=== PATIENT | female | born 1965 | race Caucasian/White ===

== ENCOUNTER 2017-02-26 18:57 | Emergency (ER) | payer BC, OTHER ==
[2017-02-26 19:05] VITALS: BP 137/58; PULSE 91; RESP 18; TEMP 98.3; O2SAT 97
[2017-02-26] MEDS ORDERED: Naproxen 500 MG TAB PO ONE ×2 (19:09→19:48)
--- NOTE | 2017-02-26 19:13 | ED PDOC ---
Lower Extremity Pain/Injury Time Seen by Provider: 02/26/17 19:05 Chief Complaint (Nursing): Lower Extremity Problem/Injury Chief Complaint (Provider): Lower Extremity Problem/Injury History Per: Patient History/Exam Limitations: no limitations Onset/Duration Of Symptoms: Days (x today) Current Symptoms Are (Timing): Still Present Additional Complaint(s): Ana is a 51 year old female who presents to the emergency department complaining of right leg pain s/p slipped and fell earlier today while at work. Patient states she slipped down ramp and "right leg went behind her" and fell down split-like position. Denies any numbness, tingling, head injury or other injuries. PMD: [place]oundry - Knee Description Of Injury: Fell Past Medical History Reviewed: Historical Data, Nursing Documentation, Vital Signs Vital Signs: Last Vital Signs Temp 98.3 F 02/26/17 19:01 Pulse 91 H 02/26/17 19:01 Resp 18 02/26/17 19:01 BP 137/58 L 02/26/17 19:01 Pulse Ox 97 02/26/17 19:01 - Medical History PMH: Asthma - Surgical History Surgical History: No Surg Hx - Family History Family History: States: Unknown Family Hx - Home Medications Home Medications: Ambulatory Orders Medication Instructions Recorded Albuterol 0.042% [Albuterol 0.042% 1.25 mg INH Q4H 10/21/13 Inhal Zaina (1.25mg/3ml) UD] Albuterol Sulfate [Proventil 3 ml] 2 inhaler INH Q3H PRN 10/21/13 Albuterol Sulfate [Proventil 3 ml] 3 ml IH Q4 #1 zaina 10/21/13 Naproxen [Naprosyn] 500 mg PO BID PRN #30 tab 02/26/17 - Allergies Allergies/Adverse Reactions: Allergies Allergy/AdvReac Type Severity Reaction Status Date / Time No Known Allergies Allergy Verified 10/21/13 17:21 Review of Systems ROS Statement: Except As Marked, All Systems Reviewed And Found Negative Musculoskeletal: Positive for: Leg Pain (Right) Neurological: Negative for: Numbness, Other (Tingling) Physical Exam - Reviewed Nursing Documentation Reviewed: Yes Vital Signs Reviewed: Yes - Physical Exam Extremity: Positive for: Tenderness (Mild tenderness to entire right knee). Negative for: Calf Tenderness, Capillary Refill, Swelling, Other (No Hip tenderness) - Laboratory Results Urine POC: Negative - ECG O2 Sat by Pulse Oximetry: 97 (RA) Pulse Ox Interpretation: Normal - Radiology X-Ray: Interpreted by Me (Knee x-ray) X-Ray Interpretation: Other (DJD; no fx) - Progress ED Course And Treament: Knee immobilized in immobilizer applied by [facility] [place] tech. Crutches and crutch walking instructions provided. Medical Decision Making Medical Decision Making: Time: 19:09 Plan: - Right Knee X-Ray - Naproxen 500 mg PO Upon provider evaluation patient is medically stable, and requires no further treatment in the ED at this time. Patient will be discharged with Rx for Naprosyn. Counseling was provided and all questions were answered regarding diagnosis and should follow up with Dr. Butch Stone next week for further evaluation. There is agreement to discharge plan. Return if symptoms persist or worsen. Scribe Attestation: Documented by Kervin Root, acting as a scribe for NIC Hannah. Provider Scribe Attestation: All medical record entries made by the Scribe were at my direction and personally dictated by me. I have reviewed the chart and agree that the record accurately reflects my personal performance of the history, physical exam, medical decision making, and the department course for this patient. I have also personally directed, reviewed, and agree with the discharge instructions and disposition. Disposition - Clinical Impression Clinical Impression: Knee injury - Patient ED Disposition Is Patient to be Admitted: No - Disposition Referrals: Rk Velez MD [Staff Provider] - Disposition: Routine/Home Disposition Time: 20:00 Condition: STABLE Additional Instructions: Follow up with Dr. Butch Stone next week for further evaluation. Prescriptions: Naproxen [Naprosyn] 500 mg PO BID PRN #30 tab PRN Reason: Pain Instructions: Knee Sprain (ED), Crutch Instructions (ED), Knee Immobilizer (ED) Forms: [employer] [facility] (Lebanese), [facility] ED School/Work Excuse
--- NOTE | 2017-02-27 09:21 | RAD ---
PROCEDURE: Right Knee Radiographs. HISTORY: trauma COMPARISON: None. FINDINGS: BONES: No acute fracture. JOINTS: Tricompartmental narrowing with degenerative spurring. JOINT EFFUSION: Small. OTHER FINDINGS: None. IMPRESSION: No demonstrate fracture or dislocation. Small suprapatellar joint effusion. Degenerative changes.
== END 2017-02-26 20:45 | disposition home or self-care (01) ==
LOC: H.ER 18:57
DX: S89.92XA Unspecified injury of left lower leg, initial encounter (principal); W19.XXXA Unspecified fall, initial encounter; Y99.0 Civilian activity done for income or pay; J45.909 Unspecified asthma, uncomplicated

== ENCOUNTER 2017-09-12 21:34 | Emergency (ER) | payer BC, OTHER ==
[2017-09-12 21:52] VITALS: BP 125/69; PULSE 67; RESP 16; TEMP 96.7; O2SAT 98
--- NOTE | 2017-09-12 22:02 | ED PDOC ---
HPI: General Adult Time Seen by Provider: 09/12/17 22:00 Chief Complaint (Nursing): ENT Problem Chief Complaint (Provider): facial pain History Per: Patient (51 y/o female h/o trigeminal neuralgia here for evaluation of acutely worsening pain today right side of face. Patient states she was previously followed by Dr. Vasquez with rx for neurontin/ tegretol but has been out of medications x 1 week. Patient has recently lost healthcare and is planning to apply for medicare. Denies any fevers/chills/dental pain/dental injury.) Past Medical History Reviewed: Historical Data, Nursing Documentation, Vital Signs Vital Signs: Last Vital Signs Temp 96.7 F L 09/12/17 21:50 Pulse 67 09/12/17 21:50 Resp 16 09/12/17 21:50 BP 125/69 09/12/17 21:50 Pulse Ox 98 09/12/17 22:22 - Medical History PMH: Asthma - Family History Family History: States: Unknown Family Hx - Immunization History Hx Tetanus Toxoid Vaccination: No Hx Influenza Vaccination: No Hx Pneumococcal Vaccination: No - Home Medications Home Medications: Ambulatory Orders Medication Instructions Recorded Albuterol 0.042% [Albuterol 0.042% 1.25 mg INH Q4H 10/21/13 Inhal Pete (1.25mg/3ml) UD] Albuterol Sulfate [Proventil 3 ml] 2 inhaler INH Q3H PRN 10/21/13 Albuterol Sulfate [Proventil 3 ml] 3 ml IH Q4 #1 pete 10/21/13 Azithromycin [Z-Fitz] 250 mg PO DAILY #6 tab 03/17/17 Gabapentin 600 mg PO BID #28 tablet 09/12/17 Naproxen 375 mg PO Q8 PRN #21 tablet 09/12/17 carBAMazepine [TEGretol] 200 mg PO BID #28 tab 09/12/17 - Allergies Allergies/Adverse Reactions: Allergies Allergy/AdvReac Type Severity Reaction Status Date / Time No Known Allergies Allergy Verified 10/21/13 17:21 Review of Systems ROS Statement: Except As Marked, All Systems Reviewed And Found Negative Physical Exam - Reviewed Nursing Documentation Reviewed: Yes Vital Signs Reviewed: Yes - Physical Exam Appears: Positive for: Well, Non-toxic, No Acute Distress Head Exam: Positive for: ATRAUMATIC, NORMAL INSPECTION, NORMOCEPHALIC Skin: Positive for: Normal Color, Warm, DRY Eye Exam: Positive for: EOMI, Normal appearance, PERRL ENT: Positive for: Normal ENT Inspection Neck: Positive for: Normal, Painless ROM Cardiovascular/Chest: Positive for: Regular Rate, Rhythm Respiratory: Positive for: CNT, Normal Breath Sounds Gastrointestinal/Abdominal: Positive for: Normal Exam, Soft Back: Positive for: Normal Inspection Extremity: Positive for: Normal ROM Neurologic/Psych: Positive for: Alert, Oriented - ECG O2 Sat by Pulse Oximetry: 98 - Progress ED Course And Treament: toradol 30 mg IM X 1 DOSE njrx report reviewed. Last written narcotic tylenol #[address] Butch Stone GABAPENTIN 600MG X 1 DOSE TEGRETOL 200 MG X 1 DOSE Disposition - Clinical Impression Clinical Impression: Trigeminal neuralgia of right side of face - Patient ED Disposition Is Patient to be Admitted: No - Disposition Referrals: formerly [facility] [Outside] Disposition: Routine/Home Disposition Time: 22:03 Condition: FAIR Prescriptions: carBAMazepine [TEGretol] 200 mg PO BID #28 tab Gabapentin 600 mg PO BID #28 tablet Naproxen 375 mg PO Q8 PRN #21 tablet PRN Reason: Pain, Moderate (4-7) Instructions: Trigeminal Neuralgia Forms: [facility] ED School/Work Excuse
== END 2017-09-12 23:57 | disposition home or self-care (01) ==
LOC: H.ER 21:34
DX: G50.0 Trigeminal neuralgia (principal)
CPT/HCPCS: 96372; 99282; J1885